=== PATIENT | female | born 1960 | race Caucasian/White ===

== ENCOUNTER 2018-06-11 10:29 | Inpatient (IN) | payer MEDICAID, OTHER ==
[~2018-06-11] VITALS: Ht 172.7 cm; Wt 87.4 kg
--- NOTE | 2018-06-11 10:33 | NUR ---
Pt BIB [facility]-c/o mech GLF x2 days ago. Pt c/o R lower rib pain, worse with movement and abrasion to nose, appears well healing, scab intact. Pt speaking in full sentences, resp even and unlabored, occasional cough. Pt placed in gown, positioned for comfort in bed. Continuous oxygen and BP monitors applied, all safety measures observed.
[2018-06-11] MEDS ORDERED: METF1000 PO (10:49)
[2018-06-11] MEDS ORDERED: LISI-167 PO (10:49)
[2018-06-11] MEDS ORDERED: OXYB5TAB7 PO (10:49)
[2018-06-11] MEDS ORDERED: SODIUM CHLORIDE FLUSH 10ML SYR IVF ONE (11:00)
[2018-06-11] MEDS ORDERED: SODIUM CHLORIDE 0.9% 1,000ML IVBOLUS ONE (11:00)
--- NOTE | 2018-06-11 11:01 | NUR ---
Report to Kristel BLUE.
[2018-06-11 11:03] LABS: BASOPHILS # (AUTO) 0.02 x10^3/uL (0-0.1); BASOPHILS % (AUTO) 0 % (0-1); EOSINOPHILS # (AUTO) 0.07 x10^3/uL (0-0.4); EOSINOPHILS % (AUTO) 1 % (1-7); LYMPHOCYTES # (AUTO) 1.43 x10^3/uL (1-3.4); LYMPHOCYTES % (AUTO) 23 % (22-44); MD NO; MEAN CORPUSCULAR HEMOGLOBIN 28.7 pg (27.0-34.8); MEAN CORPUSCULAR HGB CONC 33.7 g/dL (32.4-35.8); MEAN CORPUSCULAR VOLUME 85.2 fL (80-100); MEAN PLATELET VOLUME 9.9 fL (7.4-10.4); MONOCYTES # (AUTO) 0.43 x10^3/uL (0.2-0.8); MONOCYTES % (AUTO) 7 % (2-9); NEUTROPHILS % (AUTO) 69 % (42-75); PLATELET COUNT 231 x10^3/uL (130-400); RED BLOOD COUNT 4.43 x10^6/uL (3.82-5.3); RED CELL DISTRIBUTION WIDTH 13.6 % (9.6-15.2)
[2018-06-11 11:15] LABS: ALANINE AMINOTRANSFERASE 22 U/L (12-78); ALBUMIN 3.1 g/dL (3.4-5.0); ANION GAP 7 mmol/L (5-15); CALCIUM 8.5 mg/dL (8.5-10.1); CHLORIDE 100 mmol/L (98-107)
[2018-06-11 11:18] LABS: ALKALINE PHOSPHATASE 116 U/L (45-117); BILIRUBIN,TOTAL 0.4 mg/dL (0.2-1.0); CREATININE 0.99 mg/dL (0.55-1.02); TOTAL PROTEIN 6.4 g/dL (6.4-8.2)
--- NOTE | 2018-06-11 11:24 | NUR ---
PT AMBULATED TO BR WITHOUT DIFFICULTY. INSTRUCTED ON CLEAN CATCH URINE SAMPLE.
[2018-06-11 11:50] LABS: MICROSCOPIC INDICATED
--- NOTE | 2018-06-11 11:59 | NUR ---
PT UNDERSTANDS PLAN FOR ADMISSION. WATCHING TV, DENIES NEEDS AT THIS TIME.
[2018-06-11 12:05] LABS: CULTURE INDICATED? YES
[2018-06-11] MEDS ORDERED: ATOR20TA37 PO (12:14)
[2018-06-11 14:12] VITALS: BP 133/81
[2018-06-11] MEDS ORDERED: ONDANSETRON ODT 4 MG PO PRN (16:00)
[2018-06-11] MEDS ORDERED: ACETAMINOPHEN 325 MG TABLET PO PRN (16:00)
[2018-06-11] MEDS ORDERED: DOCUSATE 100 MG CAPSULE PO PRN (16:00)
[2018-06-11] MEDS ORDERED: POLYETHYLENE GLYCOL 17 GM PACKET PO PRN (16:00)
[2018-06-11] MEDS ORDERED: PROMETHAZINE 25 MG/ML, 1ML IM PRN (16:00)
[2018-06-11] MEDS ORDERED: ONDANSETRON 2MG/ML, 2ML IVPush PRN (16:00)
[2018-06-11] MEDS ORDERED: BISACODYL 10 MG SUPP PR PRN (16:00)
[2018-06-11] MEDS ORDERED: morphine SULFATE 10 MG/ML, 1ML IVPush PRN (16:00)
[2018-06-11] MEDS ORDERED: hydrALAzine 20 MG/ML, 1ML IVPush PRN (16:00)
[2018-06-11 16:19] LABS: HEMOGLOBIN A1C 13.3 % (4.2-6.3)
[2018-06-11 16:25] LABS: FREE T4 (FREE THYROXINE) 1.03 ng/dL (0.76-1.46); THYROID STIMULATING HORMONE 3.37 mIU/L (0.358-3.740)
[2018-06-11] MEDS: OXYcodone IR 5MG TABLET PO PRN (16:33)
[2018-06-11] MEDS: SODIUM CHLORIDE 0.9% 1,000 ML IV SCH (16:34)
[2018-06-11] MEDS: INSULIN GLARGINE 100 UNITS/ML, PEN SQ-INSULIN SCH (16:47)
[2018-06-11] MEDS: INSULIN LISPRO 100 UNITS/ML, PEN SQ-INSULIN SCH ×2 (16:48→20:12)
[2018-06-11 19:52] VITALS: BP 126/74
[2018-06-11] MEDS: OXYBUTYNIN CHLORIDE 5 MG TABLET PO SCH (20:04)
[2018-06-11] MEDS: ENOXAPARIN 40 MG/0.4 ML SQ SCH (20:04)
[2018-06-12] MEDS: SODIUM CHLORIDE 0.9% 1,000 ML IV SCH ×2 (01:39→08:10)
[2018-06-12 04:01] VITALS: BP 111/70
[2018-06-12 04:55] LABS: BASOPHILS # (AUTO) 0.02 x10^3/uL (0-0.1); BASOPHILS % (AUTO) 0 % (0-1); EOSINOPHILS # (AUTO) 0.13 x10^3/uL (0-0.4); EOSINOPHILS % (AUTO) 3 % (1-7); LYMPHOCYTES # (AUTO) 1.86 x10^3/uL (1-3.4); LYMPHOCYTES % (AUTO) 37 % (22-44); MD NO; MEAN CORPUSCULAR HEMOGLOBIN 28.4 pg (27.0-34.8); MEAN CORPUSCULAR HGB CONC 33.3 g/dL (32.4-35.8); MEAN CORPUSCULAR VOLUME 85.1 fL (80-100); MEAN PLATELET VOLUME 9.4 fL (7.4-10.4); MONOCYTES # (AUTO) 0.37 x10^3/uL (0.2-0.8); MONOCYTES % (AUTO) 7 % (2-9); NEUTROPHILS # (AUTO) 2.62 x10^3/uL (1.8-6.8); NEUTROPHILS % (AUTO) 52 % (42-75); PLATELET COUNT 197 x10^3/uL (130-400); RED BLOOD COUNT 4.12 x10^6/uL (3.82-5.3); RED CELL DISTRIBUTION WIDTH 13.5 % (9.6-15.2)
[2018-06-12 05:00] LABS: ALBUMIN 2.7 g/dL (3.4-5.0); CHLORIDE 108 mmol/L (98-107)
[2018-06-12 05:07] LABS: ALANINE AMINOTRANSFERASE 20 U/L (12-78); ALKALINE PHOSPHATASE 93 U/L (45-117); ANION GAP 4 mmol/L (5-15); BILIRUBIN,TOTAL 0.2 mg/dL (0.2-1.0); CALCIUM 8.1 mg/dL (8.5-10.1); CHOLESTEROL, TOTAL 170 mg/dL (140-239); CREATININE 0.66 mg/dL (0.55-1.02); HDL CHOL % 20 % (28-40); HDL CHOLESTEROL (DIRECT) 34 mg/dL (40-60); LDL CHOLESTEROL,CALCULATED 95 mg/dL (54-169); LDL/HDL RATIO 2.8 (0.5-3.0); TOTAL PROTEIN 5.5 g/dL (6.4-8.2); TRIGLYCERIDES 205 mg/dL (50-200); VLDL CHOLESTEROL 41 mg/dL (0-25)
[2018-06-12 07:24] VITALS: BP 142/80
[2018-06-12] MEDS: OXYBUTYNIN CHLORIDE 5 MG TABLET PO SCH ×2 (08:10→21:50)
[2018-06-12] MEDS: LISINOPRIL 10 MG TABLET PO SCH (08:10)
[2018-06-12] MEDS: ATORVASTATIN 10 MG TABLET PO SCH (08:10)
[2018-06-12] MEDS: INSULIN LISPRO 100 UNITS/ML, PEN SQ-INSULIN SCH ×4 (08:27→22:12)
[2018-06-12 12:44] VITALS: BP 129/79
[2018-06-12] MEDS: INSULIN GLARGINE 100 UNITS/ML, PEN SQ-INSULIN SCH (17:05)
[2018-06-12] MEDS: OXYcodone IR 5MG TABLET PO PRN ×2 (18:12→22:10)
[2018-06-12 19:36] VITALS: BP 146/88
[2018-06-12] MEDS ORDERED: DULO60CA55 PO (20:54)
[2018-06-12] MEDS ORDERED: DULOXETINE 30 MG CAPSULE.DR PO SCH (21:30)
[2018-06-12] MEDS: ENOXAPARIN 40 MG/0.4 ML SQ SCH (21:51)
[2018-06-13 01:51] VITALS: BP 152/87
[2018-06-13 07:48] VITALS: BP 134/79
[2018-06-13] MEDS: LISINOPRIL 10 MG TABLET PO SCH (08:15)
[2018-06-13] MEDS: OXYBUTYNIN CHLORIDE 5 MG TABLET PO SCH (08:15)
[2018-06-13] MEDS: ATORVASTATIN 10 MG TABLET PO SCH (08:15)
[2018-06-13] MEDS: INSULIN LISPRO 100 UNITS/ML, PEN SQ-INSULIN SCH ×3 (08:16→16:39)
--- NOTE | 2018-06-13 08:59 | NUR ---
Recommend chopped solids and thin liquid diet with adherence to the following strategies: HOB 90* or up to chair for meals Small bites/sips Thorough mastication Alternate solids/liquids [place] swallow sign posted in patient's room Addendum: 06/13/18 at 0917 by Corina NELSON Amended: Links added.
[2018-06-13] MEDS ORDERED: LISI-167 PO (14:08)
[2018-06-13] MEDS ORDERED: INSU100I13 SQ-INSULIN ×2 (14:08)
[2018-06-13] MEDS ORDERED: DULO60CA55 PO (14:08)
[2018-06-13] MEDS ORDERED: METF1000 PO (14:08)
[2018-06-13] MEDS ORDERED: ATOR20TA37 PO (14:08)
[2018-06-13] MEDS ORDERED: OXYB5TAB7 PO (14:08)
[2018-06-13 14:28] VITALS: BP 128/76
[2018-06-13] MEDS ORDERED: INSU100V8 SQ (15:46)
[2018-06-13] MEDS: INSULIN GLARGINE 100 UNITS/ML, PEN SQ-INSULIN SCH (16:39)
== END 2018-06-13 17:16 | disposition home or self-care (01) | DRG 638 ==
LOC: ED 11:20 → EDIP 11:45 → 3NE 12:24
PROVIDERS: ADMIT Internal Medicine; ATTEND Internal Medicine
DX: E11.65 Type 2 diabetes mellitus with hyperglycemia (principal); N39.0 Urinary tract infection, site not specified; E87.2 Acidosis; E44.0 Moderate protein-calorie malnutrition; E78.5 Hyperlipidemia, unspecified; I10 Essential (primary) hypertension; W01.0XXA Fall on same level from slipping, tripping and stumbling without subsequent striking against object, initial encounter; Y93.01 Activity, walking, marching and hiking; Z68.29 Body mass index [BMI] 29.0-29.9, adult; Z59.0 Homelessness; Z90.710 Acquired absence of both cervix and uterus; Y92.89 Other specified places as the place of occurrence of the external cause; Y99.8 Other external cause status
CPT/HCPCS: 36415; 80053; 80061; 81001; 82962; 83036; 83605; 83735; 84439; 84443; 85025; 87086; 93005; G0378; J1650; J1815; J7030

== ENCOUNTER 2018-07-01 15:04 | Inpatient (IN) | payer MEDICAID ==
[~2018-07-01] VITALS: Ht 172.7 cm; Wt 84.1 kg
[~2018-07-01 15:04] MED LIST: ATOR20TA37 PO; DULO60CA55 PO; INSU100I13 SQ-INSULIN; INSU100V8 SQ; LISI-167 PO; METF1000 PO; OXYB5TAB7 PO
--- NOTE | 2018-07-01 15:26 | NUR ---
BIB [facility]. C/O falling off top bunk at long-term a couple of days ago. Reports LOC. C/O neck pain and left knee pain, redness and swelling. FSBS = 557 after 500mL NS bolus with [facility]. A&Ox4. Placed on NIBP and pulse ox. Will continue to monitor.
[2018-07-01] MEDS ORDERED: SODIUM CHLORIDE 0.9% 1,000ML IVBOLUS ONE (15:30)
[2018-07-01] MEDS ORDERED: PLEASE ENTER HEIGHT AND WEIGHT MC SCH (15:30)
[2018-07-01] MEDS ORDERED: SODIUM CHLORIDE 0.9% 1,000 ML IV ONE (15:45)
[2018-07-01 16:00] LABS: BASOPHILS % (AUTO) 0 % (0-1); EOSINOPHILS # (AUTO) 0.05 x10^3/uL (0-0.4); EOSINOPHILS % (AUTO) 1 % (1-7); LYMPHOCYTES # (AUTO) 0.84 x10^3/uL (1-3.4); LYMPHOCYTES % (AUTO) 10 % (22-44); MD NO; MEAN CORPUSCULAR HEMOGLOBIN 28.1 pg (27.0-34.8); MEAN CORPUSCULAR HGB CONC 32.6 g/dL (32.4-35.8); MEAN CORPUSCULAR VOLUME 86.4 fL (80-100); MEAN PLATELET VOLUME 9.8 fL (7.4-10.4); MONOCYTES # (AUTO) 0.68 x10^3/uL (0.2-0.8); MONOCYTES % (AUTO) 8 % (2-9); NEUTROPHILS # (AUTO) 6.91 x10^3/uL (1.8-6.8); NEUTROPHILS % (AUTO) 81 % (42-75); PLATELET COUNT 243 x10^3/uL (130-400); RED BLOOD COUNT 4.38 x10^6/uL (3.82-5.3)
[2018-07-01] MEDS: PIPERACILLIN/TAZO/PMX 3.375GM 50 ML IVPB ONE ×2 (16:00→17:43)
[2018-07-01] MEDS ORDERED: PHARMACOKINETIC CONSULTATION MC ONE ×2 (16:00→19:30)
[2018-07-01] MEDS ORDERED: VANCOMYCIN 1,600 MG in SODIUM CHLORIDE 0.9% 250 ML IV ONE (16:00)
[2018-07-01] MEDS ORDERED: INSULIN REGULAR 100 UNITS/ML, 3ML VIAL SQ-INSULIN ONE (16:00)
[2018-07-01] MEDS ORDERED: VANCOMYCIN PER PHARMACY MC ONE (16:00)
[2018-07-01 16:01] LABS: ANION GAP 8 mmol/L (5-15); CHLORIDE 97 mmol/L (98-107); CREATININE 1.27 mg/dL (0.55-1.02)
[2018-07-01 16:19] LABS: ACETONE, SERUM Small (20mg/dL) mg/dL (Negative)
[2018-07-01] MEDS ORDERED: INSULIN SINGLE DOSE, ER SQ-INSULIN ONE (16:33)
[2018-07-01] MEDS ORDERED: PIPERACILLIN/TAZO/PMX 3.375GM 50 ML ONE (16:33)
[2018-07-01 16:43] LABS: HCT (SEDRATE) 36.6 % (34.6-47.8)
[2018-07-01] MEDS ORDERED: OMNIPAQUE 350 MG/ML, 100ML BOTTLE ONE (16:48)
--- NOTE | 2018-07-01 16:50 | NUR ---
Patient in CT.
--- NOTE | 2018-07-01 17:23 | NUR ---
Ambulated with a steady gait to the restroom.
[2018-07-01 17:34] LABS: HEMOGLOBIN A1C 12.6 % (4.2-6.3)
--- NOTE | 2018-07-01 17:36 | NUR ---
Report to MIRZA Anderson.
[2018-07-01] MEDS ORDERED: METF500T17 PO (17:42)
[2018-07-01] MEDS ORDERED: LIDOCAINE-MPF 1%, 5ML ONE (17:46)
[2018-07-01 18:08] VITALS: BP 148/79
[2018-07-01] MEDS ORDERED: PROMETHAZINE 25 MG/ML, 1ML IM PRN (19:00)
[2018-07-01] MEDS ORDERED: POLYETHYLENE GLYCOL 17 GM PACKET PO PRN (19:00)
[2018-07-01] MEDS ORDERED: VANCOMYCIN PER PHARMACY MC PRN (19:00)
[2018-07-01] MEDS ORDERED: ONDANSETRON ODT 4 MG PO PRN (19:00)
[2018-07-01] MEDS ORDERED: ACETAMINOPHEN 325 MG TABLET PO PRN (19:00)
[2018-07-01] MEDS ORDERED: hydrALAzine 20 MG/ML, 1ML IVPush PRN (19:00)
[2018-07-01] MEDS: INSULIN GLARGINE 100 UNITS/ML, PEN SQ-INSULIN SCH ×2 (19:00→20:25)
[2018-07-01] MEDS ORDERED: morphine SULFATE 10 MG/ML, 1ML IVPush PRN (19:00)
[2018-07-01] MEDS ORDERED: ONDANSETRON 2MG/ML, 2ML IVPush PRN (19:00)
[2018-07-01] MEDS ORDERED: DOCUSATE 100 MG CAPSULE PO PRN (19:00)
[2018-07-01] MEDS ORDERED: BISACODYL 10 MG SUPP PR PRN (19:00)
[2018-07-01] MEDS ORDERED: PHARMACOKINETIC MONITORING MC PRN (19:30)
[2018-07-01 19:32] LABS: FREE T4 (FREE THYROXINE) 1.31 ng/dL (0.76-1.46); THYROID STIMULATING HORMONE 1.71 mIU/L (0.358-3.740)
[2018-07-01] MEDS: SODIUM CHLORIDE 0.9% 1,000 ML IV SCH (20:02)
[2018-07-01] MEDS: ENOXAPARIN 40 MG/0.4 ML SQ SCH (20:03)
[2018-07-01] MEDS: metFORMIN 500 MG TABLET PO SCH (20:03)
[2018-07-01] MEDS: OXYBUTYNIN CHLORIDE 5 MG TABLET PO SCH (20:03)
[2018-07-01] MEDS: DULOXETINE 30 MG CAPSULE.DR PO SCH (20:03)
[2018-07-01] MEDS: INSULIN LISPRO 100 UNITS/ML, PEN SQ-INSULIN SCH (20:24)
[2018-07-01] MEDS: OXYcodone IR 5MG TABLET PO PRN (20:24)
[2018-07-01] MEDS: PIPERACILLIN/TAZO/PMX 3.375GM 50 ML IV SCH (23:42)
[2018-07-02 00:53] VITALS: BP 143/72
[2018-07-02 04:48] LABS: BASOPHILS # (AUTO) 0.02 x10^3/uL (0-0.1); BASOPHILS % (AUTO) 0 % (0-1); EOSINOPHILS # (AUTO) 0.07 x10^3/uL (0-0.4); EOSINOPHILS % (AUTO) 1 % (1-7); LYMPHOCYTES # (AUTO) 1.56 x10^3/uL (1-3.4); LYMPHOCYTES % (AUTO) 21 % (22-44); MD NO; MEAN CORPUSCULAR HEMOGLOBIN 28.2 pg (27.0-34.8); MEAN CORPUSCULAR HGB CONC 32.8 g/dL (32.4-35.8); MEAN PLATELET VOLUME 9.5 fL (7.4-10.4); MONOCYTES # (AUTO) 0.78 x10^3/uL (0.2-0.8); MONOCYTES % (AUTO) 11 % (2-9); NEUTROPHILS # (AUTO) 4.88 x10^3/uL (1.8-6.8); NEUTROPHILS % (AUTO) 67 % (42-75); PLATELET COUNT 252 x10^3/uL (130-400); RED BLOOD COUNT 4.04 x10^6/uL (3.82-5.3); RED CELL DISTRIBUTION WIDTH 13.9 % (9.6-15.2)
[2018-07-02 05:00] LABS: ALANINE AMINOTRANSFERASE 12 U/L (12-78); ALBUMIN 2.5 g/dL (3.4-5.0); ANION GAP 7 mmol/L (5-15); CALCIUM 8.3 mg/dL (8.5-10.1); CHLORIDE 105 mmol/L (98-107)
[2018-07-02 05:03] LABS: ALKALINE PHOSPHATASE 105 U/L (45-117); BILIRUBIN,TOTAL 0.3 mg/dL (0.2-1.0); CHOL/HDL RATIO 3.9; CHOLESTEROL, TOTAL 138 mg/dL (140-239); CREATININE 0.72 mg/dL (0.55-1.02); HDL CHOL % 25 % (28-40); HDL CHOLESTEROL (DIRECT) 35 mg/dL (40-60); LDL CHOLESTEROL,CALCULATED 70 mg/dL (54-169); TOTAL PROTEIN 6.4 g/dL (6.4-8.2); TRIGLYCERIDES 164 mg/dL (50-200); VLDL CHOLESTEROL 33 mg/dL (0-25)
[2018-07-02] MEDS: PIPERACILLIN/TAZO/PMX 3.375GM 50 ML IV SCH ×4 (05:09→23:20)
[2018-07-02] MEDS: OXYcodone IR 5MG TABLET PO PRN (05:18)
[2018-07-02 07:30] VITALS: BP 119/72
[2018-07-02] MEDS: ATORVASTATIN 10 MG TABLET PO SCH (08:09)
[2018-07-02] MEDS: LISINOPRIL 10 MG TABLET PO SCH (08:10)
[2018-07-02] MEDS: metFORMIN 500 MG TABLET PO SCH ×2 (08:10→20:04)
[2018-07-02] MEDS: OXYBUTYNIN CHLORIDE 5 MG TABLET PO SCH ×2 (08:10→20:03)
[2018-07-02] MEDS: INSULIN LISPRO 100 UNITS/ML, PEN SQ-INSULIN SCH ×4 (08:10→20:17)
[2018-07-02] MEDS: SODIUM CHLORIDE 0.9% 1,000 ML IV SCH (08:11)
[2018-07-02] MEDS: KETOROLAC 30 MG/1 ML IV PRN ×2 (12:50→20:16)
[2018-07-02] MEDS: VANCOMYCIN 1,600 MG in SODIUM CHLORIDE 0.9% 250 ML IV SCH (12:50)
[2018-07-02 13:59] VITALS: BP 93/59
[2018-07-02] MEDS: DULOXETINE 30 MG CAPSULE.DR PO SCH (20:03)
[2018-07-02] MEDS: ENOXAPARIN 40 MG/0.4 ML SQ SCH (20:04)
[2018-07-02] MEDS: INSULIN GLARGINE 100 UNITS/ML, PEN SQ-INSULIN SCH (20:16)
[2018-07-02 20:30] VITALS: BP 99/60
[2018-07-03 01:05] VITALS: BP 111/71
[2018-07-03] MEDS: PIPERACILLIN/TAZO/PMX 3.375GM 50 ML IV SCH ×3 (04:55→17:12)
[2018-07-03 05:23] LABS: ANION GAP 5 mmol/L (5-15); CALCIUM 8.4 mg/dL (8.5-10.1); CHLORIDE 107 mmol/L (98-107)
[2018-07-03] MEDS: VANCOMYCIN 1,600 MG in SODIUM CHLORIDE 0.9% 250 ML IV SCH (05:53)
[2018-07-03 07:21] VITALS: BP 122/63
[2018-07-03] MEDS: INSULIN LISPRO 100 UNITS/ML, PEN SQ-INSULIN SCH ×4 (07:56→20:10)
[2018-07-03] MEDS: OXYBUTYNIN CHLORIDE 5 MG TABLET PO SCH ×2 (09:20→19:46)
[2018-07-03] MEDS: LISINOPRIL 10 MG TABLET PO SCH (09:21)
[2018-07-03] MEDS: metFORMIN 500 MG TABLET PO SCH ×2 (09:21→19:45)
[2018-07-03] MEDS: ATORVASTATIN 10 MG TABLET PO SCH (09:21)
[2018-07-03 14:45] VITALS: BP 111/57
[2018-07-03] MEDS: KETOROLAC 30 MG/1 ML IV PRN (16:57)
[2018-07-03 19:43] VITALS: BP 99/64
[2018-07-03] MEDS: ENOXAPARIN 40 MG/0.4 ML SQ SCH (19:45)
[2018-07-03] MEDS: DULOXETINE 30 MG CAPSULE.DR PO SCH (19:45)
[2018-07-03] MEDS: INSULIN GLARGINE 100 UNITS/ML, PEN SQ-INSULIN SCH (20:09)
[2018-07-03] MEDS ORDERED: MAGNESIUM SULFATE PMX 2GM/50ML 50 ML IV ONE (21:30)
[2018-07-04] MEDS: PIPERACILLIN/TAZO/PMX 3.375GM 50 ML IV SCH ×4 (00:21→20:57)
[2018-07-04 02:05] VITALS: BP 110/57
[2018-07-04 05:50] LABS: ANION GAP 5 mmol/L (5-15); CALCIUM 8.7 mg/dL (8.5-10.1); CHLORIDE 108 mmol/L (98-107); CREATININE 0.81 mg/dL (0.55-1.02)
[2018-07-04] MEDS: INSULIN LISPRO 100 UNITS/ML, PEN SQ-INSULIN SCH ×4 (07:00→19:52)
[2018-07-04 07:02] VITALS: BP 129/83
[2018-07-04] MEDS: ATORVASTATIN 10 MG TABLET PO SCH (09:57)
[2018-07-04] MEDS: metFORMIN 500 MG TABLET PO SCH ×2 (09:57→19:47)
[2018-07-04] MEDS: LISINOPRIL 10 MG TABLET PO SCH (09:57)
[2018-07-04] MEDS: OXYBUTYNIN CHLORIDE 5 MG TABLET PO SCH ×2 (09:57→19:47)
[2018-07-04 13:16] VITALS: BP 132/71
[2018-07-04] MEDS ORDERED: METF500T17 PO (14:27)
[2018-07-04] MEDS ORDERED: INSU100V8 SQ (14:27)
[2018-07-04] MEDS ORDERED: AMOX1TAB64 PO (14:27)
[2018-07-04] MEDS ORDERED: IBUP-1221 PO (14:28)
[2018-07-04] MEDS ORDERED: VANCOMYCIN 1,600 MG in SODIUM CHLORIDE 0.9% 250 ML IV SCH (17:00)
[2018-07-04] MEDS ORDERED: GADOBUTROL 10 MMOL/10 ML PFS ONE (17:34)
[2018-07-04] MEDS: ENOXAPARIN 40 MG/0.4 ML SQ SCH (19:47)
[2018-07-04] MEDS: DULOXETINE 30 MG CAPSULE.DR PO SCH (19:47)
[2018-07-04] MEDS: INSULIN GLARGINE 100 UNITS/ML, PEN SQ-INSULIN SCH (19:53)
[2018-07-04] MEDS: OXYcodone IR 5MG TABLET PO PRN (21:15)
[2018-07-04 21:23] VITALS: BP 112/59
[2018-07-05] MEDS: PIPERACILLIN/TAZO/PMX 3.375GM 50 ML IV SCH ×4 (02:57→20:27)
[2018-07-05 03:33] VITALS: BP 91/53
[2018-07-05] MEDS: INSULIN LISPRO 100 UNITS/ML, PEN SQ-INSULIN SCH ×4 (07:00→20:30)
[2018-07-05 07:25] VITALS: BP 129/80
[2018-07-05] MEDS: LISINOPRIL 10 MG TABLET PO SCH (08:59)
[2018-07-05] MEDS: OXYBUTYNIN CHLORIDE 5 MG TABLET PO SCH ×2 (08:59→20:28)
[2018-07-05] MEDS: metFORMIN 500 MG TABLET PO SCH ×2 (08:59→20:28)
[2018-07-05] MEDS: ATORVASTATIN 10 MG TABLET PO SCH (08:59)
[2018-07-05] MEDS: OXYcodone IR 5MG TABLET PO PRN ×2 (10:30→20:32)
[2018-07-05] MEDS: MICAFUNGIN 100 MG in SODIUM CHLORIDE 0.9% 100 ML IV SCH (11:03)
[2018-07-05 12:51] VITALS: BP 124/76
[2018-07-05 19:01] VITALS: BP 120/69
[2018-07-05] MEDS: DULOXETINE 30 MG CAPSULE.DR PO SCH (20:28)
[2018-07-05] MEDS: ENOXAPARIN 40 MG/0.4 ML SQ SCH (20:28)
[2018-07-05] MEDS: INSULIN GLARGINE 100 UNITS/ML, PEN SQ-INSULIN SCH (20:30)
[2018-07-06] MEDS: PIPERACILLIN/TAZO/PMX 3.375GM 50 ML IV SCH ×4 (02:28→23:00)
[2018-07-06 02:30] VITALS: BP 138/69
[2018-07-06] MEDS: INSULIN LISPRO 100 UNITS/ML, PEN SQ-INSULIN SCH ×4 (07:00→20:13)
[2018-07-06 07:37] VITALS: BP 141/78
[2018-07-06] MEDS: ATORVASTATIN 10 MG TABLET PO SCH (07:57)
[2018-07-06] MEDS: OXYBUTYNIN CHLORIDE 5 MG TABLET PO SCH ×2 (07:57→21:15)
[2018-07-06] MEDS: metFORMIN 500 MG TABLET PO SCH ×2 (07:57→21:15)
[2018-07-06] MEDS: LISINOPRIL 10 MG TABLET PO SCH (07:57)
[2018-07-06] MEDS: MICAFUNGIN 100 MG in SODIUM CHLORIDE 0.9% 100 ML IV SCH ×2 (08:00→19:41)
[2018-07-06 13:30] VITALS: BP 148/88
[2018-07-06] MEDS ORDERED: BISACODYL 10 MG SUPP PR PRN (19:00)
[2018-07-06] MEDS ORDERED: PROMETHAZINE 25 MG/ML, 1ML IM PRN (19:00)
[2018-07-06] MEDS ORDERED: hydrALAzine 20 MG/ML, 1ML IVPush PRN (19:00)
[2018-07-06] MEDS ORDERED: POLYETHYLENE GLYCOL 17 GM PACKET PO PRN (19:00)
[2018-07-06] MEDS ORDERED: OXYcodone IR 5MG TABLET PO PRN (19:00)
[2018-07-06] MEDS ORDERED: ONDANSETRON ODT 4 MG PO PRN (19:00)
[2018-07-06] MEDS ORDERED: DOCUSATE 100 MG CAPSULE PO PRN (19:00)
[2018-07-06] MEDS ORDERED: ACETAMINOPHEN 325 MG TABLET PO PRN (19:00)
[2018-07-06] MEDS ORDERED: PIPERACILLIN/TAZO/PMX 3.375GM 50 ML IV SCH (19:00)
[2018-07-06] MEDS ORDERED: ONDANSETRON 2MG/ML, 2ML IVPush PRN (19:00)
[2018-07-06] MEDS ORDERED: ENOXAPARIN 40 MG/0.4 ML SQ SCH (19:00)
[2018-07-06 19:14] VITALS: BP 125/65
[2018-07-06] MEDS: INSULIN GLARGINE 100 UNITS/ML, PEN SQ-INSULIN SCH ×2 (21:00→21:19)
[2018-07-06] MEDS: DULOXETINE 30 MG CAPSULE.DR PO SCH (21:14)
[2018-07-06] MEDS: ENOXAPARIN 40 MG/0.4 ML SQ SCH (21:15)
[2018-07-06] MEDS: morphine SULFATE 10 MG/ML, 1ML IVPush PRN (22:27)
[2018-07-07 01:21] VITALS: BP 136/76
[2018-07-07] MEDS: morphine SULFATE 10 MG/ML, 1ML IVPush PRN (01:23)
[2018-07-07] MEDS: KETOROLAC 30 MG/1 ML IV PRN (02:44)
[2018-07-07] MEDS: PIPERACILLIN/TAZO/PMX 3.375GM 50 ML IV SCH ×4 (05:00→23:03)
[2018-07-07 06:04] LABS: ALBUMIN 2.4 g/dL (3.4-5.0); ANION GAP 7 mmol/L (5-15); CALCIUM 8.6 mg/dL (8.5-10.1); CHLORIDE 108 mmol/L (98-107)
[2018-07-07 06:06] LABS: ALANINE AMINOTRANSFERASE 19 U/L (12-78); ALKALINE PHOSPHATASE 80 U/L (45-117); BILIRUBIN,TOTAL 0.1 mg/dL (0.2-1.0); CREATININE 0.84 mg/dL (0.55-1.02); TOTAL PROTEIN 6.4 g/dL (6.4-8.2)
[2018-07-07] MEDS: INSULIN LISPRO 100 UNITS/ML, PEN SQ-INSULIN SCH ×4 (07:00→20:30)
[2018-07-07] MEDS: SODIUM CHLORIDE 0.9% 1,000 ML IV SCH (08:10)
[2018-07-07] MEDS: LISINOPRIL 10 MG TABLET PO SCH (08:59)
[2018-07-07] MEDS: ATORVASTATIN 10 MG TABLET PO SCH (08:59)
[2018-07-07] MEDS: metFORMIN 500 MG TABLET PO SCH ×2 (08:59→20:56)
[2018-07-07] MEDS: OXYBUTYNIN CHLORIDE 5 MG TABLET PO SCH ×2 (09:00→20:56)
[2018-07-07] MEDS: ACETAMINOPHEN 325 MG TABLET PO PRN (09:00)
[2018-07-07] MEDS ORDERED: morphine SULFATE 10 MG/ML, 1ML IVPush PRN (10:00)
[2018-07-07 13:46] VITALS: BP 137/74
[2018-07-07] MEDS: CARVEDILOL 3.125 MG TABLET PO SCH (18:00)
[2018-07-07] MEDS: MICAFUNGIN 100 MG in SODIUM CHLORIDE 0.9% 100 ML IV SCH (18:30)
[2018-07-07 18:58] VITALS: BP 135/65
[2018-07-07] MEDS: INSULIN GLARGINE 100 UNITS/ML, PEN SQ-INSULIN SCH (20:28)
[2018-07-07] MEDS: DULOXETINE 30 MG CAPSULE.DR PO SCH (20:56)
[2018-07-07] MEDS: ENOXAPARIN 40 MG/0.4 ML SQ SCH (20:56)
[2018-07-08 03:39] VITALS: BP 156/73
[2018-07-08] MEDS: SODIUM CHLORIDE 0.9% 1,000 ML IV SCH ×2 (05:09→21:40)
[2018-07-08] MEDS: PIPERACILLIN/TAZO/PMX 3.375GM 50 ML IV SCH (05:10)
[2018-07-08] MEDS: CARVEDILOL 3.125 MG TABLET PO SCH ×2 (05:57→17:17)
[2018-07-08 06:00] LABS: BASOPHILS # (AUTO) 0.02 x10^3/uL (0-0.1); BASOPHILS % (AUTO) 0 % (0-1); EOSINOPHILS # (AUTO) 0.13 x10^3/uL (0-0.4); EOSINOPHILS % (AUTO) 2 % (1-7); LYMPHOCYTES # (AUTO) 1.63 x10^3/uL (1-3.4); LYMPHOCYTES % (AUTO) 24 % (22-44); MD NO; MEAN CORPUSCULAR HEMOGLOBIN 28.2 pg (27.0-34.8); MEAN CORPUSCULAR HGB CONC 32.6 g/dL (32.4-35.8); MEAN CORPUSCULAR VOLUME 86.6 fL (80-100); MEAN PLATELET VOLUME 8.7 fL (7.4-10.4); MONOCYTES # (AUTO) 0.54 x10^3/uL (0.2-0.8); MONOCYTES % (AUTO) 8 % (2-9); NEUTROPHILS # (AUTO) 4.56 x10^3/uL (1.8-6.8); NEUTROPHILS % (AUTO) 66 % (42-75); PLATELET COUNT 281 x10^3/uL (130-400); RED BLOOD COUNT 4.05 x10^6/uL (3.82-5.3); RED CELL DISTRIBUTION WIDTH 13.7 % (9.6-15.2)
[2018-07-08] MEDS: INSULIN LISPRO 100 UNITS/ML, PEN SQ-INSULIN SCH ×4 (07:00→20:34)
[2018-07-08] MEDS ORDERED: MAGNESIUM SULFATE PMX 2GM/50ML 50 ML IV ONE (08:00)
[2018-07-08] MEDS: ATORVASTATIN 10 MG TABLET PO SCH (08:08)
[2018-07-08] MEDS: metFORMIN 500 MG TABLET PO SCH ×2 (08:08→21:07)
[2018-07-08] MEDS: LISINOPRIL 10 MG TABLET PO SCH (08:09)
[2018-07-08] MEDS: FLUCONAZOLE 200 MG TABLET PO SCH (08:09)
[2018-07-08] MEDS: OXYBUTYNIN CHLORIDE 5 MG TABLET PO SCH ×2 (08:13→21:07)
[2018-07-08 08:56] VITALS: BP 133/63
[2018-07-08] MEDS: AMOXICILLIN/CLAV 875-125MG TABLET PO SCH ×2 (09:00→21:00)
[2018-07-08] MEDS ORDERED: CARV3.1212 PO (10:03)
[2018-07-08] MEDS ORDERED: FLUC200T PO (10:03)
[2018-07-08] MEDS ORDERED: ACET325T14 PO (10:03)
[2018-07-08 12:50] VITALS: BP 151/74
[2018-07-08] MEDS: OXYcodone IR 5MG TABLET PO PRN ×2 (17:16→21:07)
[2018-07-08] MEDS: ACETAMINOPHEN 325 MG TABLET PO PRN (17:17)
[2018-07-08 19:17] VITALS: BP 144/80
[2018-07-08] MEDS: INSULIN GLARGINE 100 UNITS/ML, PEN SQ-INSULIN SCH (20:33)
[2018-07-08] MEDS: KETOROLAC 30 MG/1 ML IV PRN (20:34)
[2018-07-08] MEDS: DULOXETINE 30 MG CAPSULE.DR PO SCH (21:06)
[2018-07-08] MEDS: ENOXAPARIN 40 MG/0.4 ML SQ SCH (21:10)
[2018-07-09 01:12] VITALS: BP 150/84
[2018-07-09] MEDS: CARVEDILOL 3.125 MG TABLET PO SCH (05:57)
[2018-07-09 06:57] VITALS: BP 139/79
[2018-07-09] MEDS: FLUCONAZOLE 200 MG TABLET PO SCH (08:28)
[2018-07-09] MEDS: LISINOPRIL 10 MG TABLET PO SCH (08:29)
[2018-07-09] MEDS: AMOXICILLIN/CLAV 875-125MG TABLET PO SCH (08:29)
[2018-07-09] MEDS: ATORVASTATIN 10 MG TABLET PO SCH (08:29)
[2018-07-09] MEDS: INSULIN LISPRO 100 UNITS/ML, PEN SQ-INSULIN SCH ×2 (08:30→11:00)
[2018-07-09] MEDS: metFORMIN 500 MG TABLET PO SCH (08:30)
[2018-07-09] MEDS: OXYBUTYNIN CHLORIDE 5 MG TABLET PO SCH (08:30)
[2018-07-09] MEDS: KETOROLAC 30 MG/1 ML IV PRN (08:30)
[2018-07-09 12:41] VITALS: BP 172/94
== END 2018-07-09 15:46 | disposition home or self-care (01) | DRG 872 ==
LOC: ED 16:12 → EDIP 17:31 → 3NE 18:01 → UNDODISIN 07-06 15:48
PROVIDERS: ADMIT Internal Medicine; ATTEND Internal Medicine
DX: A41.9 Sepsis, unspecified organism (principal); E44.0 Moderate protein-calorie malnutrition; E87.1 Hypo-osmolality and hyponatremia; L02.31 Cutaneous abscess of buttock; L03.116 Cellulitis of left lower limb; L03.317 Cellulitis of buttock; N17.9 Acute kidney failure, unspecified; E78.5 Hyperlipidemia, unspecified; E83.42 Hypomagnesemia; E86.0 Dehydration; F17.200 Nicotine dependence, unspecified, uncomplicated; I10 Essential (primary) hypertension; K57.30 Diverticulosis of large intestine without perforation or abscess without bleeding; W06.XXXA Fall from bed, initial encounter; E11.65 Type 2 diabetes mellitus with hyperglycemia; R59.1 Generalized enlarged lymph nodes; N31.9 Neuromuscular dysfunction of bladder, unspecified; Z68.28 Body mass index [BMI] 28.0-28.9, adult; Y92.003 Bedroom of unspecified non-institutional (private) residence as the place of occurrence of the external cause; Z59.0 Homelessness; Z79.4 Long term (current) use of insulin; Z90.710 Acquired absence of both cervix and uterus; Z91.14 Patient's other noncompliance with medication regimen; Y93.89 Activity, other specified; Y99.8 Other external cause status
CPT/HCPCS: 36415; 72193; 72197; 80048; 80053; 80061; 80202; 82010; 82040; 82962; 83036; 83605; 83735; 84100; 84439; 84443; 85025; 85651; 87040; 87070; 87106; 87205; 96361; 96372; 96374; A9585; G0378; J1650; J1885; J2248; J2405; J2543; J3370; Q9967; J1815; J2270; J3475; J7030; J7050

== ENCOUNTER 2018-09-19 10:31 | Emergency (ER) | payer MEDICAID ==
[~2018-09-19] VITALS: Ht 172.7 cm; Wt 76.2 kg
[2018-09-19 12:02] VITALS: BP 129/87
== END 2018-09-19 14:23 | disposition home or self-care (01) ==
LOC: ED 12:49
DX: S80.211A Abrasion, right knee, initial encounter (principal); R55 Syncope and collapse; M25.551 Pain in right hip; R42 Dizziness and giddiness; J44.9 Chronic obstructive pulmonary disease, unspecified; E78.00 Pure hypercholesterolemia, unspecified; E11.9 Type 2 diabetes mellitus without complications; I10 Essential (primary) hypertension; X58.XXXA Exposure to other specified factors, initial encounter; Y93.89 Activity, other specified; Y92.89 Other specified places as the place of occurrence of the external cause; Y99.8 Other external cause status
CPT/HCPCS: 36415; 70450; 71045; 80053; 84484; 85025; 93005; 96360; 96361; 99284; J7030

== ENCOUNTER 2018-09-20 17:37 | Emergency (ER) | payer MEDICAID ==
[~2018-09-20] VITALS: Ht 172.7 cm; Wt 75.0 kg
[2018-09-20 17:42] VITALS: BP 124/72
== END 2018-09-20 19:04 | disposition home or self-care (01) ==
LOC: ED 18:15
DX: S80.211A Abrasion, right knee, initial encounter (principal); J44.9 Chronic obstructive pulmonary disease, unspecified; I10 Essential (primary) hypertension; E11.9 Type 2 diabetes mellitus without complications; W01.0XXA Fall on same level from slipping, tripping and stumbling without subsequent striking against object, initial encounter; Y93.89 Activity, other specified; Y92.099 Unspecified place in other non-institutional residence as the place of occurrence of the external cause; Y99.8 Other external cause status
CPT/HCPCS: 99283

== ENCOUNTER 2018-09-21 12:21 | Emergency (ER) | payer MEDICAID ==
[~2018-09-21] VITALS: Ht 172.7 cm; Wt 75.0 kg
[2018-09-21 12:37] VITALS: BP 146/74
== END 2018-09-21 15:53 | disposition home or self-care (01) ==
LOC: ED 12:53
DX: J44.9 Chronic obstructive pulmonary disease, unspecified (principal); I10 Essential (primary) hypertension; E11.9 Type 2 diabetes mellitus without complications; E78.00 Pure hypercholesterolemia, unspecified; Z76.0 Encounter for issue of repeat prescription
CPT/HCPCS: 99283

== ENCOUNTER 2019-09-18 09:33 | Emergency (ER) | payer MEDICAID ==
[~2019-09-18] VITALS: Ht 172.7 cm; Wt 80.0 kg
[~2019-09-18 09:33] MED LIST changes: +ACET325T14 PO; +AMLO10TA8 PO; +AMOX1TAB64 PO; +ATOR10TA9 PO; +CARV3.1212 PO; -DULO60CA55 PO; +DULO60CA56 PO; +FLUC200T PO; +IBUP-1221 PO; +INSU100I13 SQ; +LISI-420 PO; +METF-688 PO; +METF500T17 PO; +OXYB5TAB10 PO; -OXYB5TAB7 PO
--- NOTE | 2019-09-18 09:50 | NUR ---
late entry for 0950: pt presents to ED from [facility] after mechanical GLF. pt notes left shoulder, left neck pain since fall. pt denies midline cervical tenderness. pt is a&o, neuro intact. full ROM to all extremities. pt placed on all monitors. EDMD Tahir at bedside for initial assessment. pt dressed in gown. call light in reach. awaiting orders.
--- NOTE | 2019-09-18 10:00 | NUR ---
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 PT DENIES SI/HI. PT STATES SHE IS SOBER FOR PAST YEAR.
--- NOTE | 2019-09-18 10:08 | NUR ---
pt to CT at this time.
--- NOTE | 2019-09-18 11:33 | NUR ---
PT BACK FROM RADIOLOGY, PT A&O, RESPS EVEN AND UNLABORED, ODALYS.
[2019-09-18] MEDS ORDERED: HYDROcodone/APAP 5/325 TABLET PO ONE (12:00)
[2019-09-18] MEDS ORDERED: HYDROcodone/APAP 5/325 TABLET ONE (12:04)
[2019-09-18 12:13] VITALS: BP 137/84
--- NOTE | 2019-09-18 12:57 | NUR ---
pt medicated per emar for shoulder pain, tolerated well. pt given dc instructions and script, sling in place at discharge. pt a&o, resps even and unlabored. pt ambulatory to dc desk with steady gait. pt given dc instructions and script, educated regarding rx for keflex. nadn at dc. pt called pillowcase cutter at discharge, who is to drive pt home. pt educated not to drive d/t med given. no iv in place during this stay.
== END 2019-09-18 12:58 | disposition home or self-care (01) ==
LOC: ED 10:39
DX: S43.422A Sprain of left rotator cuff capsule, initial encounter (principal); S00.31XA Abrasion of nose, initial encounter; S80.211A Abrasion, right knee, initial encounter; I10 Essential (primary) hypertension; E11.9 Type 2 diabetes mellitus without complications; J44.9 Chronic obstructive pulmonary disease, unspecified; Z87.891 Personal history of nicotine dependence; W01.0XXA Fall on same level from slipping, tripping and stumbling without subsequent striking against object, initial encounter; Y93.01 Activity, walking, marching and hiking; Y92.098 Other place in other non-institutional residence as the place of occurrence of the external cause; Y99.8 Other external cause status
CPT/HCPCS: 70450; 71045; 72125; 72170; 72220; 99285

== ENCOUNTER 2019-10-02 19:10 | Emergency (ER) | payer MEDICAID ==
[~2019-10-02] VITALS: Ht 172.7 cm; Wt 80.0 kg
[2019-10-02 19:11] VITALS: BP 131/53
[2019-10-02] MEDS ORDERED: PHENAZOPYRIDINE 200 MG TABLET ONE (19:16)
[2019-10-02] MEDS ORDERED: LIDOCAINE 2%,20 ML JEL.PF.APP MM ONE (19:19)
--- NOTE | 2019-10-02 19:24 | NUR ---
PT MEDICATED PER MAR. CATHETER VISUALIZED BY THIS NURSE, PLACEMENT IS APPROPRIATE, BAG IS DRAINING WITHOUT ISSUE. UROJET LIDOCAINE APPLIED TO URETHRAL OPENING, PER VERBAL ORDERS FROM ERP. PT TOLERATED WELL. DENIES ANY FURTHER NEEDS AT THIS TIME, CALL LIGHT IN REACH.
[2019-10-02] MEDS ORDERED: PHENAZOPYRIDINE 200 MG TABLET PO ONE (19:30)
== END 2019-10-02 20:29 ==
LOC: ED 20:23
DX: R33.9 Retention of urine, unspecified (principal); I10 Essential (primary) hypertension; E11.9 Type 2 diabetes mellitus without complications; J44.9 Chronic obstructive pulmonary disease, unspecified; E78.00 Pure hypercholesterolemia, unspecified; Z87.891 Personal history of nicotine dependence
CPT/HCPCS: 99283